=== PATIENT | male | born 1980 | race Caucasian/White ===

== ENCOUNTER 2022-06-05 22:42 | Emergency (ER) | payer BC, SELFPAY ==
[2022-06-05 22:58] VITALS: BP 155/96; PULSE 109; RESP 16; TEMP 36.8; O2SAT 99
[2022-06-05 23:47] LABS: Influenza A QL RT-PCR Negative (Negative); Influenza B QL RT-PCR Negative (Negative); RSV RNA, RT-PCR Negative (Negative); SARS-CoV-2 RNA PCR Negative
--- NOTE | 2022-06-06 01:10 | ECG_ITS ---
Measurements Intervals [place] Rate: 91 P: 35 TX: 164 QRS: 65 QRSD: 90 T: 7 QT: 317 QTc: 391 Interpretive Statements SINUS RHYTHM NONSPECIFIC T-WAVE ABNORMALITY SLIGHT EARLY REPOLARIZATION NOTED NO PREVIOUS ECG AVAILABLE FOR COMPARISON Electronically Signed On 06-06-2022 8:42:34 [employer]ENT SERV[employer] by Lo Martinez M.D.
[2022-06-06] MEDS: IBUPROFEN 400 MG TABLET 800 MG PO (01:29)
[2022-06-06] MEDS: ACETAMINOPHEN 500 MG TABLET 1000 MG PO (01:29)
--- NOTE | 2022-06-06 03:46 | ED.GENADULT ---
HPI - General Adult General Chief complaint: Upper Respiratory Infection Stated complaint: flu like symptoms, Ear pain Time Seen by Provider: 06/06/22 01:09 History of Present Illness HPI narrative: This is a 42-year-old male presenting to ED with chief complaint of flu-like symptoms and ear pain. Patient says that symptoms started 2 days ago. The included fever, headache and cough. However today it progressed to your pain on his right side that is gotten increasingly worse. He has had multiple sounds on that side. Patient denies chest pain, difficulty breathing, abdominal pain, nausea vomiting diarrhea. He has taken ibuprofen with some relief. Related Data Allergies Allergy/AdvReac Type Severity Reaction Status Date / Time No Known Allergies Allergy Mild Verified 01/04/13 19:58 Review of Systems Review of Systems: CONSTITUTIONAL: Denies night sweats. EYES: No eye pain ENT: Denies rhinorrhea CARDIOVASCULAR: Denies palpitations RESPIRATORY: Denies hemoptysis GASTROINTESTINAL: Denies hematemesis GENITOURINARY: Denies hematuria. SKIN: Denies rash MUSCULOSKELETAL: Denies myalgia. NEUROLOGIC: Denies weakness. PSYCHIATRIC: Denies delusions PMF Past Medical History Medical History (Updated 06/06/22 @ 03:53 by Jay Alvarenga MD) Healthy male adult Social History Social History (Updated 06/06/22 @ 03:50 by Jay Alvarenga MD) Social History: Denies alcohol tobacco or drugs Exam Narrative: APPEARANCE: No apparent distress. Head: atraumatic. left tympanic membrane normal, right tympanic membrane has fluid filled bulla on the tympanic membraneand some dried blood in the external canal EYES: EOMI, NOSE: Atraumatic NECK: Trachea midline RESPIRATORY: No increased rate of breathing CARDIOVASCULAR: RRR, ABDOMINAL: Non-distended MUSCULOSKELETAl: No obvious deformities NEURO: Alert. Moving 4/4 extremities SKIN:: Warm, dry. Normal color PSYCHIATRIC: Normal affect Course Vital Signs Vital signs: Vital Signs Temperature 98.2 F 06/05/22 22:58 Pulse Rate 109 H 06/05/22 22:58 Respiratory Rate 16 06/05/22 22:58 Blood Pressure 155/96 H 06/05/22 22:58 Pulse Oximetry 99 06/05/22 22:58 Oxygen Delivery Room Air 06/05/22 22:58 Temperature 98.2 F 06/05/22 22:58 Pulse Rate 109 H 12/16/22 22:58 Respiratory Rate 16 06/05/22 22:58 Blood Pressure 155/96 H 06/05/22 22:58 Pulse Oximetry 99 06/05/22 22:58 Oxygen Delivery Room Air 06/06/22 00:03 Medical Decision Making MDM Narrative Medical decision making narrative: this is a 42-year-old male presenting with URI symptoms. He was negative for flu COVID and RSV. Physical exam revealed fluid-filled coli on the right tympanic membrane consistent with bullous myringitis. Patient will be treated with a 10 day course of Augmentin. Patient be discharged with primary care follow-up. Vital Signs Vital Signs: Vital Signs Temperature 98.2 F 06/05/22 22:58 Pulse Rate 109 H 06/05/22 22:58 Respiratory Rate 16 06/05/22 22:58 Blood Pressure 155/96 H 06/05/22 22:58 Pulse Oximetry 99 06/05/22 22:58 Oxygen Delivery Room Air 06/05/22 22:58 Temperature 98.2 F 06/05/22 22:58 Pulse Rate 109 H 06/05/22 22:58 Respiratory Rate 16 06/05/22 22:58 Blood Pressure 155/96 H 06/05/22 22:58 Pulse Oximetry 99 06/05/22 22:58 Oxygen Delivery Room Air 06/06/22 00:03 Lab Data Labs: Lab Results 06/05/22 Range/Units 23:04 Influenza A (RT-PCR) Negative (Negative) Influenza B (RT-PCR) Negative (Negative) RSV (RT-PCR) Negative (Negative) SARS-CoV-2 RNA (RT-PCR) Negative Discharge Plan Discharge Clinical Impression: Bullous myringitis Patient Disposition: Home, Self-Care Condition: Stable Instructions: Antibiotic Form, Ear Infection (AC) Additional Instructions: Please take Motrin and Tylenol for pain control. Please complete a 10 day course of Augmentin. Pl
[2022-06-06 04:19] VITALS: BP 124/92; PULSE 88; RESP 16; TEMP 36.9; O2SAT 96
[2022-06-06] MEDS: AMOXICILLIN/CLAVULANATE K 875-125 MG TAB 1 TABLET PO (04:19)
[2022-06-06] MEDS: HYDROcodone/acetaminophen (*CRX) 5-325 MG TABLET 1 TAB PO (04:19)
== END 2022-06-06 04:20 | disposition home or self-care (01) ==
PROVIDERS: Emergency Provider Emergency Medicine
DX: H73.011 Bullous myringitis, right ear (principal); Z20.822 Contact with and (suspected) exposure to COVID-19; R94.31 Abnormal electrocardiogram [ECG] [EKG]
CPT/HCPCS: 87637; 93005; 99283; A9270